=== PATIENT | male | born 2000 | race Caucasian/White ===

== ENCOUNTER 2021-08-21 01:26 | Emergency (ER) | payer SELFPAY ==
[~2021-08-21] VITALS: Ht 185.4 cm; Wt 72.6 kg
--- NOTE | 2021-08-21 01:55 | NUR ---
[facility] 89 [facility] C/O DRINKING/ETOH. PATIENT IS A/O, RR EVEN AND UNLABORED, NO SOB NOTED. PATIENT CONNECTED TO MONITORS. SITTER AT BEDSIDE
--- NOTE | 2021-08-21 05:15 | NUR ---
LAB AT BEDSIDE
--- NOTE | 2021-08-21 05:20 | NUR ---
URINE COLLECTED SENT TO LAB
[2021-08-21 05:32] VITALS: BP 126/59
--- NOTE | 2021-08-21 05:32 | NUR ---
Pt ambulatory with a steady gait
[2021-08-21 05:34] LABS: BASOPHILS % (AUTO) 0.4 % (0.0-2.0); EOSINOPHILS % (AUTO) 0.4 % (0.0-6.0); HEMATOCRIT 42 % (39-51); HEMOGLOBIN 13.4 g/dL (13.5-17.5); LYMPHOCYTES % (AUTO) 25.8 % (20.0-44.0); MEAN CORPUSCULAR HGB CONC 32 g/dl (31.0-36.0); MEAN CORPUSCULAR VOLUME 81 fL (80-96); MONOCYTES # (AUTO) 0.3 K/uL (0.1-1.30); MONOCYTES % (AUTO) 3.4 % (2.0-12.0); NEUTROPHILS # (AUTO) 5.3 K/uL (1.8-8.9); PLATELET COUNT (AUTO) 203 K/uL (150-450); RED BLOOD CELL COUNT(AUTO) 5.13 MIL/uL (4.5-6.0); WHITE BLOOD COUNT (AUTO) 7.6 K/uL (4.3-11.0)
[2021-08-21 05:45] LABS: ALBUMIN 4.2 g/dL (3.4-5.0); BILIRUBIN,DIRECT 0.1 mg/dL (0.0-0.2); BILIRUBIN,TOTAL 0.2 mg/dL (0.2-1.0); CALCIUM, SERUM 8.8 mg/dL (8.5-10.1); CREATININE 0.9 mg/dL (0.6-1.3); POTASSIUM 4.2 mmol/L (3.5-5.1); TOTAL PROTEIN, SERUM 8.1 g/dL (6.4-8.2)
--- NOTE | 2021-08-21 05:46 | NUR ---
Patient discharged to home in stable condition. Written and verbal after care instructions given. Patient verbalizes understanding of instruction.
[2021-08-21] MEDS ORDERED: NALO4SPR BNOSTRILS (05:58)
== END 2021-08-21 05:50 | disposition home or self-care (01) ==
LOC: ER 01:31
DX: F10.129 Alcohol abuse with intoxication, unspecified (principal); F19.10 Other psychoactive substance abuse, uncomplicated; F17.200 Nicotine dependence, unspecified, uncomplicated; Z60.2 Problems related to living alone; Y90.9 Presence of alcohol in blood, level not specified
CPT/HCPCS: 36415; 80048-TC; 80076-TC; 82550-TC; 82553; 82962-TC; 85025-TC; G0480